=== PATIENT | male | born 1955 | race Hispanic/Latino ===

== ENCOUNTER 2022-10-27 17:12 | Inpatient (IN) | payer MEDICARE, OTHER ==
[2022-10-27 17:56] LABS: Hemoglobin 15.9 g/dL (14.0-18.0); Mean Corpuscular HGB CONC 32.5 g/dL (32.0-36.0); Mean Corpuscular Volume 89.2 fl (78.0-98.0); Mean Platelet Volume 7.8 fL (7.4-10.4); Platelet Count 211 10x3/uL (130-400); RBC Distribution Width 11.9 % (11.5-14.5); Red Blood Cell (RBC) Count 5.49 mill/uL (4.70-6.10); White Blood Cell (WBC) Count 8.7 10x3/uL (4.8-10.8)
[2022-10-27 18:15] LABS: ALT (SGPT) 17 U/L (8-55); AST (SGOT) 21 U/L (5-34); Albumin 4.4 g/dL (3.4-4.8); Alkaline Phosphatase 52 U/L (40-110); Anion Gap 17 mmol/L (10-20); BUN (Urea Nitrogen) 11 mg/dL (8.4-25.7); Bilirubin, Total 2.2 mg/dL (0.2-1.2); Calc. Creatinine Clearance 0 mL/min (70-130); Calcium 10.2 mg/dL (7.8-10.44); Carbon Dioxide 21 mmol/L (23-31); Chloride 100 mmol/L (98-107); Estimated GFR 102; Globulin 2.7 g/dL (2.4-3.5); Glucose 141 mg/dL (80-115); Potassium 4.3 mmol/L (3.5-5.1); Protein, Total 7.1 g/dL (5.8-8.1); Sodium 134 mmol/L (136-145)
[2022-10-27 18:22] LABS: Band 16 % (5-11); Lymphocytes 6 % (21-51); MDiff Complete? YES; Monocytes 4 % (0-10); Neutrophil 74 % (42-75); Platelet Morphology Comment Appears Adequate; RBC Morphology Normal
[2022-10-27 21:01] LABS: Lactic Acid 1.4 mmol/L (0.5-2.2)
[2022-10-27 22:23] LABS: SARS-CoV-2 NAA Rapid Test Not Detected (NotDetected)
[2022-10-27 23:40] LABS: CKMB 1.7 ng/mL (0-6.6)
[2022-10-28 00:24] LABS: Bacteria/HPF 1+ HPF (None Seen); Bilirubin Negative (Negative); Blood, Urine Negative (Negative); Clarity Clear (Clear); Glucose, Urine (Dipstick) Greater than 1000 mg/dL (Negative); Ketone, Urine 10 mg/dL (Negative); Leukocyte 75 Leu/uL (Negative); Nitrite 1+ (Negative); Protein, Urine (Dipstick) Negative (Neg-Trace); RBC/HPF 0-3 HPF (0-3); Specific Gravity, Urine 1.034 (1.002-1.036); Squamous Epithelial None Seen HPF (0-3)
[2022-10-28] MEDS ORDERED: Dextrose 50% Abboject 50 ML SYRINGE SLOW IVP PRN (00:54)
[2022-10-28] MEDS ORDERED: Acetaminophen 650 MG Suppository PR PRN (00:54)
[2022-10-28] MEDS ORDERED: Acetaminophen 325 MG TAB PO PRN (00:54)
[2022-10-28] MEDS ORDERED: Dextrose 5% in Water 1,000 ML IV PRN (00:54)
[2022-10-28] MEDS ORDERED: Ondansetron ODT 4 MG TAB PO PRN (00:54)
[2022-10-28] MEDS ORDERED: Ondansetron PF 4 MG/2 ML Vial IVP PRN (00:54)
[2022-10-28] MEDS ORDERED: HumaLOG 300 UNITS/3 ML VIAL SC PRN ×2 (00:54)
[2022-10-28] MEDS ORDERED: Sodium Chloride 0.9% 1,000 ML IV SCH (01:00)
[2022-10-28 01:07] LABS: #Lymphocytes 1.3 thou/uL (1.20-3.40); #Monocytes 1.2 thou/uL (0.11-0.59); #Neutrophils 12.8 thou/uL (1.40-6.50); %Basophils 0.1 % (0.0-1.0); %Eosinophils 0.3 % (0.0-10.0); %Lymphocytes 8.5 % (21.0-51.0); %Monocytes 7.9 % (0.0-10.0); %Neutrophils 83.2 % (42.0-75.0); Hemoglobin 13.5 g/dL (14.0-18.0); Mean Corpuscular HGB CONC 33.6 g/dL (32.0-36.0); Mean Corpuscular Hemoglobin 29.9 pg (27.0-31.0); Mean Corpuscular Volume 88.9 fl (78.0-98.0); Mean Platelet Volume 7.5 fL (7.4-10.4); Platelet Count 194 10x3/uL (130-400); RBC Distribution Width 11.7 % (11.5-14.5); Red Blood Cell (RBC) Count 4.52 mill/uL (4.70-6.10); White Blood Cell (WBC) Count 15.4 10x3/uL (4.8-10.8)
[2022-10-28] MEDS ORDERED: VANCOMYCIN 1.25 GM/250 ML BAG IVPB SCH (01:15)
[2022-10-28] MEDS ORDERED: Piperacillin/Tazobactam 3.375 GM in Sodium Chloride 0.9% 100 ML IVPB SCH (01:15)
[2022-10-28] MEDS ORDERED: Aspirin Chewable 81 MG TAB ONE (01:20)
[2022-10-28 01:22] LABS: Lactic Acid 1.9 mmol/L (0.5-2.2)
[2022-10-28 01:28] LABS: ALT (SGPT) 14 U/L (8-55); AST (SGOT) 15 U/L (5-34); Albumin 3.6 g/dL (3.4-4.8); Alkaline Phosphatase 43 U/L (40-110); Anion Gap 14 mmol/L (10-20); BUN (Urea Nitrogen) 10 mg/dL (8.4-25.7); Bilirubin, Total 2.2 mg/dL (0.2-1.2); Calc. Creatinine Clearance 0 mL/min (70-130); Calcium 9.6 mg/dL (7.8-10.44); Carbon Dioxide 24 mmol/L (23-31); Chloride 101 mmol/L (98-107); Estimated GFR 103; Globulin 2.6 g/dL (2.4-3.5); Glucose 104 mg/dL (80-115); Potassium 3.7 mmol/L (3.5-5.1); Protein, Total 6.2 g/dL (5.8-8.1); Sodium 135 mmol/L (136-145)
[2022-10-28] MEDS: Piperacillin/Tazobactam 3.375 GM in Sodium Chloride 0.9% 100 ML IVPB SCH ×3 (02:09→16:54)
[2022-10-28] MEDS ORDERED: Piperacillin/Tazobactam 3.375 GM VIAL ONE ×2 (02:17→09:58)
[2022-10-28] MEDS: VANCOMYCIN 1.25 GM/250 ML BAG IVPB SCH ×2 (03:07→15:49)
[2022-10-28 03:45] LABS: Troponin I 0.045 ng/mL (< 0.028)
[2022-10-28] MEDS: Sodium Chloride 0.9% 1,000 ML IV SCH ×3 (04:00→16:54)
[2022-10-28 05:33] LABS: Troponin I 0.034 ng/mL (< 0.028)
[2022-10-28 08:16] VITALS: BMI 39.7
[2022-10-28] MEDS ORDERED: Iopamidol-370 76% 500 ML 1 ML ONE (09:03)
[2022-10-28] MEDS ORDERED: HYDROcodone/Acetaminophen 10/325 mg Tablet PO PRN (10:30)
[2022-10-28] MEDS ORDERED: Carvedilol 6.25 MG TAB PO SCH (11:15)
[2022-10-28] MEDS ORDERED: Pregabalin 75 MG CAP PO SCH (11:15)
[2022-10-28] MEDS ORDERED: Losartan 25 MG TAB PO PRN (11:24)
[2022-10-28] MEDS ORDERED: VANCOMYCIN 1.25 GM/250 ML BAG 1.25 GM in Premix Bag 1 BAG IVPB SCH (16:00)
[2022-10-28] MEDS: FLUoxetine HCl 20 MG CAP PO SCH (22:24)
[2022-10-28] MEDS: Pregabalin 75 MG CAP PO SCH (22:25)
[2022-10-28] MEDS: Rosuvastatin 20 MG TAB PO SCH (22:25)
[2022-10-28] MEDS: Carvedilol 6.25 MG TAB PO SCH (22:26)
[2022-10-28] MEDS: Furosemide 40 MG TAB PO SCH (22:26)
[2022-10-29] MEDS: Piperacillin/Tazobactam 3.375 GM in Sodium Chloride 0.9% 100 ML IVPB SCH ×3 (01:01→16:08)
[2022-10-29] MEDS: Sodium Chloride 0.9% 1,000 ML IV SCH ×3 (03:46→17:38)
[2022-10-29] MEDS: VANCOMYCIN 1.25 GM/250 ML BAG 1.25 GM in Premix Bag 1 BAG IVPB SCH ×2 (03:55→14:57)
[2022-10-29] MEDS: Pregabalin 75 MG CAP PO SCH ×2 (08:49→22:21)
[2022-10-29] MEDS: Aspirin 81 mg Enteric Coated Tablet PO SCH (08:49)
[2022-10-29] MEDS: Clopidogrel Bisulfate 75 MG TAB PO SCH (08:49)
[2022-10-29] MEDS: Amlodipine 5 MG TAB PO SCH (08:49)
[2022-10-29] MEDS: Empagliflozin 25 MG TAB PO SCH (08:50)
[2022-10-29] MEDS: Carvedilol 6.25 MG TAB PO SCH ×2 (08:50→22:22)
[2022-10-29] MEDS ORDERED: FLU VACC QS2022-23(65YR UP)/PF 240 MCG/0.7 ML SYRINGE IM ONE (09:00)
[2022-10-29 14:33] LABS: Vancomycin, Trough 8.9 ug/mL
[2022-10-29] MEDS: Rosuvastatin 20 MG TAB PO SCH (22:20)
[2022-10-29] MEDS: FLUoxetine HCl 20 MG CAP PO SCH (22:22)
[2022-10-29] MEDS: Furosemide 40 MG TAB PO SCH (22:23)
[2022-10-29] MEDS ORDERED: VANCOMYCIN 1.25 GM/250 ML BAG 1.25 GM in Premix Bag 1 BAG IVPB SCH (23:00)
[2022-10-30] MEDS: Piperacillin/Tazobactam 3.375 GM in Sodium Chloride 0.9% 100 ML IVPB SCH ×2 (01:14→10:25)
[2022-10-30 03:43] VITALS: TEMP 97.6
[2022-10-30] MEDS: Sodium Chloride 0.9% 1,000 ML IV SCH (03:49)
[2022-10-30 04:24] LABS: #Eosinphils 0.3 thou/uL (0.0-0.7); #Lymphocytes 2.2 thou/uL (1.20-3.40); #Monocytes 0.9 thou/uL (0.11-0.59); #Neutrophils 4.2 thou/uL (1.40-6.50); %Basophils 0.3 % (0.0-1.0); %Eosinophils 4.3 % (0.0-10.0); %Lymphocytes 28.8 % (21.0-51.0); %Monocytes 12.1 % (0.0-10.0); %Neutrophils 54.5 % (42.0-75.0); Hemoglobin 14.4 g/dL (14.0-18.0); Mean Corpuscular HGB CONC 32.9 g/dL (32.0-36.0); Mean Corpuscular Hemoglobin 29.5 pg (27.0-31.0); Mean Corpuscular Volume 89.5 fl (78.0-98.0); Mean Platelet Volume 7.9 fL (7.4-10.4); Platelet Count 239 10x3/uL (130-400); RBC Distribution Width 11.9 % (11.5-14.5); Red Blood Cell (RBC) Count 4.88 mill/uL (4.70-6.10); White Blood Cell (WBC) Count 7.6 10x3/uL (4.8-10.8)
[2022-10-30 04:50] LABS: Anion Gap 15 mmol/L (10-20); BUN (Urea Nitrogen) 7 mg/dL (8.4-25.7); CRP (Inflammatory) 4.23 mg/dL (= or < 0.5); Calc. Creatinine Clearance 179 mL/min (70-130); Calcium 10.2 mg/dL (7.8-10.44); Carbon Dioxide 24 mmol/L (23-31); Chloride 105 mmol/L (98-107); Estimated GFR 104; Glucose 93 mg/dL (80-115); Potassium 3.5 mmol/L (3.5-5.1); Sodium 140 mmol/L (136-145)
[2022-10-30 07:48] VITALS: BP 140/80
[2022-10-30] MEDS: Carvedilol 6.25 MG TAB PO SCH (08:04)
[2022-10-30] MEDS: Aspirin 81 mg Enteric Coated Tablet PO SCH (09:07)
[2022-10-30] MEDS: Pregabalin 75 MG CAP PO SCH (09:07)
[2022-10-30] MEDS: Amlodipine 5 MG TAB PO SCH (09:07)
[2022-10-30] MEDS: Clopidogrel Bisulfate 75 MG TAB PO SCH (09:07)
[2022-10-30] MEDS: Empagliflozin 25 MG TAB PO SCH (09:12)
== END 2022-10-30 10:25 | disposition home or self-care (01) | DRG 871 ==
LOC: ERS 17:12 → ERHOLD 23:22 → OBSVTOIN 10-28 07:04 → 2NO 10-28 14:51
PROVIDERS: ADMIT Hospitalist; ATTEND Hospitalist
DX: A41.9 Sepsis, unspecified organism (principal); I21.A1 Myocardial infarction type 2; N39.0 Urinary tract infection, site not specified; E87.20 Acidosis, unspecified; Z20.822 Contact with and (suspected) exposure to COVID-19; T38.3X5A Adverse effect of insulin and oral hypoglycemic [antidiabetic] drugs, initial encounter; E78.5 Hyperlipidemia, unspecified; I10 Essential (primary) hypertension; I25.10 Atherosclerotic heart disease of native coronary artery without angina pectoris; I25.5 Ischemic cardiomyopathy; Z28.21 Immunization not carried out because of patient refusal; Z89.511 Acquired absence of right leg below knee; Z95.1 Presence of aortocoronary bypass graft; Z79.899 Other long term (current) drug therapy; Z79.82 Long term (current) use of aspirin; Z79.02 Long term (current) use of antithrombotics/antiplatelets; Z79.84 Long term (current) use of oral hypoglycemic drugs; Z79.1 Long term (current) use of non-steroidal anti-inflammatories (NSAID)
CPT/HCPCS: 36415; 36416; 70450; 71045; 74177; 80048; 80053; 80202; 81003; 81015; 82553; 83605; 84484; 85025; 86140; 87040; 93005; 93306; 94760; G0378; J1650; J1815; J2543; J3370; J3490; J7050; Q9967